=== PATIENT | female | born 1980 | race African-American/Black ===

== ENCOUNTER 2020-03-08 08:06 | Emergency (ER) | payer OTHER ==
[~2020-03-08] VITALS: Ht 165.1 cm; Wt 76.2 kg
[2020-03-08] MEDS ORDERED: NORVASC 2.5 MG2.5 M1 PO (08:24)
[2020-03-08] MEDS ORDERED: HYDROCHLOROTHIA25 M1 PO (09:15)
[2020-03-08] MEDS ORDERED: OLMESARTAN MEDO20 MG PO (09:15)
[2020-03-08] MEDS ORDERED: NORVASC5 M1 PO (09:15)
[2020-03-08 09:26] VITALS: BP 161/98
== END 2020-03-08 09:27 | disposition home or self-care (01) ==
LOC: M.ERS 08:06
DX: H16.002 Unspecified corneal ulcer, left eye (principal); H16.9 Unspecified keratitis; I16.0 Hypertensive urgency; I10 Essential (primary) hypertension; Z98.890 Other specified postprocedural states; Z98.51 Tubal ligation status; Z88.2 Allergy status to sulfonamides

== ENCOUNTER 2020-04-26 16:17 | Emergency (ER) | payer OTHER ==
[~2020-04-26] VITALS: Ht 165.1 cm; Wt 77.1 kg
[~2020-04-26 16:17] MED LIST: HYDROCHLOROTHIA25 M1 PO; NORVASC 2.5 MG2.5 M1 PO; NORVASC5 M1 PO; OLMESARTAN MEDO20 MG PO
[2020-04-26 16:26] VITALS: BP 183/123
[2020-04-26] MEDS ORDERED: PREDNISONE 10 M10 M1 PO (16:32)
[2020-04-26] MEDS ORDERED: DIPHENHIST50 MG PO (16:32)
== END 2020-04-26 16:50 | disposition home or self-care (01) ==
LOC: M.ERS 16:17
DX: L25.9 Unspecified contact dermatitis, unspecified cause (principal); I10 Essential (primary) hypertension; F32.9 Major depressive disorder, single episode, unspecified; F17.210 Nicotine dependence, cigarettes, uncomplicated; Z98.890 Other specified postprocedural states; Z98.51 Tubal ligation status; Z88.2 Allergy status to sulfonamides